=== PATIENT | female | born 1990 | race American Indian/Alaskan Native ===

== ENCOUNTER 2021-02-16 09:56 | Emergency (ER) | payer MEDICAID ==
[~2021-02-16] VITALS: Ht 162.6 cm; Wt 113.6 kg
[2021-02-16 10:07] VITALS: BP 135/89
[2021-02-16] MEDS ORDERED: pantoprazole 40mg Tablet.DR PO ONE (10:30)
[2021-02-16] MEDS ORDERED: ondansetron 4mg rapidly disintigrating tab PO ONE (10:30)
[2021-02-16] MEDS ORDERED: famotidine 20mg tablet PO ONE (10:30)
[2021-02-16 11:54] LABS: URINE HCG NEGATIVE (NEG)
[2021-02-16] MEDS ORDERED: ONDA4TAB6 PO (12:02)
[2021-02-16] MEDS ORDERED: PANT-47 PO (12:02)
[2021-02-16] MEDS ORDERED: proCHLORperazine 10mg tablet PO ONE (12:05)
[2021-02-16 12:06] LABS: CLARITY,URINE SLIGHTLY CLOUDY (Clear); COLOR,URINE YELLOW (Yellow); UA COLLECTION TYPE CLN CATCH MIDSTREAM
[2021-02-16 12:07] LABS: GLUCOSE, URINE NEGATIVE (Neg); KETONES,URINE NEGATIVE (Neg); LEUKOCYTE ESTERASE ,URINE NEGATIVE (Neg); NITRITES, URINE NEGATIVE (Neg); OCCULT BLOOD,URINE NEGATIVE (Neg); PROTEIN,URINE TRACE mg/dl (Neg); UROBILINOGEN,URINE 0.2 E.U/dL (0.2-1.0)
[2021-02-16 12:11] LABS: MUCUS STRANDS MODERATE /LPF (Neg); SQUAMOUS EPITHELIAL CELL,UR FEW /LPF (FEW)
[2021-02-16 12:12] LABS: BACTERIA,URINE NONE SEEN /HPF (Neg); CELLULAR CAST 0-4 /LPF (NEGATIVE); RBC,URINE 0-2 /HPF (0-2); WBC,URINE 0-4 /HPF (0-4)
== END 2021-02-16 12:44 | disposition home or self-care (01) ==
LOC: ER 09:57
DX: R10.84 Generalized abdominal pain (principal); R11.2 Nausea with vomiting, unspecified; K21.9 Gastro-esophageal reflux disease without esophagitis
CPT/HCPCS: 81001; 81025; 99284; Q0164

== ENCOUNTER 2021-02-18 09:48 | Emergency (ER) | payer MEDICAID ==
[~2021-02-18] VITALS: Ht 162.6 cm; Wt 131.6 kg
[~2021-02-18 09:48] MED LIST: ONDA4TAB6 PO; PANT-47 PO
[2021-02-18] MEDS ORDERED: dexamethasone sod phosphate 10mg/ml inj IV STA (15:26)
[2021-02-18] MEDS ORDERED: famotidine/PF 10 mg/ml inj IV ONE (15:30)
[2021-02-18] MEDS ORDERED: metoclopramide 5 mg/ml inj IV ONE (16:10)
[2021-02-18] MEDS ORDERED: pantoprazole 40 MG vial IV ONE (16:10)
[2021-02-18] MEDS: famotidine/PF 10 mg/ml inj IV ONE (16:20)
[2021-02-18 16:29] VITALS: BP 138/78
[2021-02-18 17:00] LABS: ALANINE AMINOTRANSFERASE 29 U/L (12-78); ALBUMIN/GLOBULIN RATIO 0.8 (1.1-1.5); ALKALINE PHOSPHATASE 144 IU/L (46-116); ANION GAP 8 (8-16); BILIRUBIN,TOTAL 0.5 MG/DL (0.1-1.0); BLOOD UREA NITROGEN 7 MG/DL (7-18); CALCIUM 9.5 MG/DL (8.5-10.1); CHLORIDE 105 MMOL/L (99-107); GLUCOSE 78 MG/DL (70-104); LIPASE 57 U/L (73-393); SODIUM 137 MMOL/L (135-145); TOTAL PROTEIN 9.2 G/DL (6.4-8.2); eGFR > 90 ML/MIN
[2021-02-18] MEDS ORDERED: FAMO20TA44 PO (17:12)
[2021-02-18] MEDS ORDERED: SUCR1TAB34 PO (17:12)
[2021-02-18] MEDS ORDERED: PRED20TA PO (17:12)
[2021-02-18] MEDS ORDERED: PROC-8 PO (17:12)
[2021-02-18 17:25] LABS: ASPARTATE AMINO TRANSFERASE 25 U/L (10-37)
== END 2021-02-18 18:10 | disposition home or self-care (01) ==
LOC: ER 09:49
DX: R10.13 Epigastric pain (principal); T45.0X5A Adverse effect of antiallergic and antiemetic drugs, initial encounter; R11.0 Nausea; K21.9 Gastro-esophageal reflux disease without esophagitis; Z79.899 Other long term (current) drug therapy; Y92.89 Other specified places as the place of occurrence of the external cause
CPT/HCPCS: 36415; 74176; 80053; 83690; 93005; 96374; 96375; 99285; C9113; J1100; J2765; J3490

== ENCOUNTER 2021-12-13 09:00 | Emergency (ER) | payer MEDICAID ==
[~2021-12-13] VITALS: Ht 165.1 cm; Wt 136.3 kg
[~2021-12-13 09:00] MED LIST changes: +FAMO20TA44 PO; +PROC-8 PO; +SUCR1TAB34 PO
[2021-12-13 09:26] VITALS: BP 127/83
[2021-12-13 09:58] LABS: BASOPHILS # (AUTO) 0.1 X10'3 (0-0.2); BASOPHILS % (AUTO) 0.5 % (0-1); EOSINOPHILS # (AUTO) 0.1 X10'3 (0-0.9); EOSINOPHILS % (AUTO) 1.1 % (0-6); LYMPHOCYTES # (AUTO) 2.6 X10'3 (1.1-4.8); LYMPHOCYTES % (AUTO) 23.7 % (21-51); MEAN CORPUSCULAR HEMOGLOBIN 28.5 PG (27.0-31.0); MEAN CORPUSCULAR HGB CONC 33.4 g/dL (33.0-36.5); MEAN CORPUSCULAR VOLUME 85.5 FL (78-98); MEAN PLATELET VOLUME 7.2 FL (7.4-10.4); MONOCYTES # (AUTO) 0.6 X10'3 (0-0.9); MONOCYTES % (AUTO) 5.4 % (2-12); NEUTROPHILS # (AUTO) 7.5 X10'3 (1.8-7.7); NEUTROPHILS % (AUTO) 69.3 % (42-75); PLATELET COUNT 431 X10'3 (140-440); RED BLOOD COUNT 4.56 X10'6 (4.20-5.60); RED CELL DISTRIBUTION WIDTH 14.8 % (11.5-14.5); WHITE BLOOD COUNT 10.8 X10'3 (4.5-11.0)
[2021-12-13 10:02] LABS: CLARITY,URINE CLEAR (Clear); COLOR,URINE YELLOW (Yellow); GLUCOSE, URINE NEGATIVE (Neg); KETONES,URINE NEGATIVE (Neg); LEUKOCYTE ESTERASE ,URINE NEGATIVE (Neg); NITRITES, URINE NEGATIVE (Neg); OCCULT BLOOD,URINE TRACE-INTACT (Neg); PROTEIN,URINE NEGATIVE (Neg); URINE HCG NEGATIVE (NEG); UROBILINOGEN,URINE 0.2 E.U/dL (0.2-1.0)
[2021-12-13 10:04] LABS: UA COLLECTION TYPE CLN CATCH MIDSTREAM
[2021-12-13 10:08] LABS: BACTERIA,URINE NONE SEEN /HPF (Neg); MUCUS STRANDS FEW /LPF (Neg); RBC,URINE 0-2 /HPF (0-2); SQUAMOUS EPITHELIAL CELL,UR FEW /LPF (FEW); WBC,URINE NONE SEEN /HPF (0-4)
[2021-12-13 10:21] LABS: ALANINE AMINOTRANSFERASE 26 U/L (12-78); ALBUMIN 3.8 G/DL (3.4-5.0); ALBUMIN/GLOBULIN RATIO 0.8 (1.1-1.5); ALKALINE PHOSPHATASE 121 IU/L (46-116); ANION GAP 10 (8-16); ASPARTATE AMINO TRANSFERASE 17 U/L (10-37); BILIRUBIN,TOTAL 0.4 MG/DL (0.1-1.0); BLOOD UREA NITROGEN 11 MG/DL (7-18); BUN/CREATININE RATIO 17.2 (6.6-38.0); CALCIUM 9.3 MG/DL (8.5-10.1); CHLORIDE 105 MMOL/L (99-107); CREATININE 0.64 MG/DL (0.40-0.90); GLUCOSE 96 MG/DL (70-104); LIPASE 148 U/L (73-393); POTASSIUM 4.1 MMOL/L (3.5-5.1); SODIUM 140 MMOL/L (135-145); TOTAL CARBON DIOXIDE 24.8 MMOL/L (24-32); TOTAL PROTEIN 8.6 G/DL (6.4-8.2); eGFR > 90 ML/MIN
[2021-12-13] MEDS ORDERED: TRAM50TA2 PO (11:35)
[2021-12-13] MEDS ORDERED: NAPR-56 PO (11:35)
[2021-12-13] MEDS ORDERED: ONDA4TAB12 PO (11:35)
== END 2021-12-13 12:46 | disposition home or self-care (01) ==
LOC: ER 09:00
DX: N83.201 Unspecified ovarian cyst, right side (principal); K21.9 Gastro-esophageal reflux disease without esophagitis
CPT/HCPCS: 36415; 76700; 76830; 76856; 80053; 81001; 81025; 83690; 85025; 93976; 99284